=== PATIENT | male | born 1985 | race Caucasian/White ===

== ENCOUNTER 2016-05-24 13:23 | Emergency (ER) | payer OTHER ==
--- NOTE | 2016-05-25 01:45 | RAD ---
TWO VIEWS OF THE CHEST: HISTORY: Chest pain and shortness of breath. FINDINGS: Two views of the chest show normal sized cardiomediastinal silhouette. There is no evidence of conso lidation, mass, or pleural effusion. The bones are unremarkable. IMPRESSION: No evidence of acute cardiopulmonary disease.. POS: [facility]
[2016-05-25 02:20] LABS: ALT (SGPT) 81 U/L (0-55); AST (SGOT) 65 U/L (5-34); Alkaline Phosphatase 122 U/L (40-150); Anion Gap 19 mmol/L (10-20); BUN (Urea Nitrogen) 10 mg/dL (8.9-20.6); Bilirubin, Total 1.1 mg/dL (0.2-1.2); Calc. Creatinine Clearance 0 mL/min (70-130); Calcium 10.1 mg/dL (7.8-10.44); Carbon Dioxide 26 mmol/L (22-29); Chloride 97 mmol/L (98-107); Estimated GFR-MDRD Greater than 90; Globulin 3.2 g/dL (2.4-3.5); Protein, Total 8.1 g/dL (6.0-8.3)
[2016-05-25 02:21] LABS: Troponin I Less than 0.010 ng/mL (< 0.028)
[2016-05-25 02:23] LABS: Hematocrit 50.1 % (42.0-52.0); Mean Platelet Volume 8.6 fL (7.4-10.4); Red Blood Cell (RBC) Count 5.25 mill/uL (4.70-6.10); White Blood Cell (WBC) Count 15.9 thou/uL (4.8-10.8)
[2016-05-25 02:24] LABS: #Basophils 0.2 thou/uL (0.0-0.2); #Eosinphils 0.1 thou/uL (0.0-0.7); #Lymphocytes 1.2 thou/uL (1.20-3.40); #Monocytes 0.7 thou/uL (0.11-0.59); #Neutrophils 13.8 thou/uL (1.40-6.50); %Eosinophils 0.5 % (0.0-10.0); %Lymphocytes 7.7 % (21.0-51.0); %Monocytes 4.5 % (0.0-10.0)
== END 2016-05-24 15:20 | disposition home or self-care (01) ==
LOC: NAV ERS 13:23
DX: R07.89 Other chest pain (principal); F41.9 Anxiety disorder, unspecified; E03.9 Hypothyroidism, unspecified; F31.9 Bipolar disorder, unspecified; F17.210 Nicotine dependence, cigarettes, uncomplicated; Z79.899 Other long term (current) drug therapy
CPT/HCPCS: 71020; 80053; 84484; 85025; 93005

== ENCOUNTER 2016-08-22 21:29 | Emergency (ER) | payer OTHER ==
[2016-08-22 22:11] LABS: #Basophils 0.1 thou/uL (0.0-0.2); #Eosinphils 0.2 thou/uL (0.0-0.7); #Lymphocytes 2.8 thou/uL (1.20-3.40); #Monocytes 0.7 thou/uL (0.11-0.59); #Neutrophils 10.2 thou/uL (1.40-6.50); %Eosinophils 1.5 % (0.0-10.0); %Lymphocytes 19.9 % (21.0-51.0); %Neutrophils 72.6 % (42.0-75.0); Hemoglobin 17.4 g/dL (14.0-18.0); Mean Corpuscular HGB CONC 33.9 g/dL (32.0-36.0); Mean Corpuscular Hemoglobin 32.8 pg (27.0-31.0); Mean Corpuscular Volume 96.7 fl (80.0-94.0); Mean Platelet Volume 9.7 fL (7.4-10.4); Platelet Count 251 thou/uL (130-400); RBC Distribution Width 10.8 % (11.5-14.5); Red Blood Cell (RBC) Count 5.31 mill/uL (4.70-6.10); White Blood Cell (WBC) Count 14.1 thou/uL (4.8-10.8)
[2016-08-22 22:18] LABS: Amphetamine Not Detected (NotDetected); Barbiturates Screen Not Detected (NotDetected); Benzodiazepine Screen Not Detected (NotDetected); Cocaine Metabolite Screen Not Detected (NotDetected); Medtox Control Line Valid? VALID (VALID); Methadone Not Detected (NotDetected); Methamphetamine Not Detected (NotDetected); Opiate Screen Detected (NotDetected); Oxycodone Screen Not Detected (NotDetected); Phencyclidine (PCP) Not Detected (NotDetected); THC/Cannabinoid Screen Not Detected (NotDetected); Tricyclic Screen Not Detected (NotDetected)
[2016-08-22 22:20] LABS: Acetaminophen Less than 6.0 mcg/mL (10.0-30.0); Alcohol 237 mg/dL (Less than 10); Salicylate Less than 8.0 mg/dL (15.0-30.0)
[2016-08-22 22:23] LABS: ALT (SGPT) 70 U/L (8-55); AST (SGOT) 59 U/L (5-34); Alkaline Phosphatase 98 U/L (40-150); Anion Gap 21 mmol/L (10-20); BUN (Urea Nitrogen) 5 mg/dL (8.9-20.6); Bilirubin, Total 0.2 mg/dL (0.2-1.2); CK (CPK) 72 U/L (30-200); Calc. Creatinine Clearance 0 mL/min (70-130); Carbon Dioxide 19 mmol/L (22-29); Chloride 105 mmol/L (98-107); Estimated GFR-MDRD Greater than 90; Globulin 3.3 g/dL (2.4-3.5); Glucose 108 mg/dL (70-105); Potassium 3.9 mmol/L (3.5-5.1); Protein, Total 8.3 g/dL (6.0-8.3)
[2016-08-22 22:25] LABS: Sodium 141 mmol/L (136-145)
[2016-08-22] MEDS ORDERED: Sodium Chloride 0.9% 1,000 ML ONE (22:45)
[2016-08-23] MEDS ORDERED: Ibuprofen 200 MG TAB ONE (01:29)
[2016-08-23] MEDS ORDERED: Acetaminophen 500 MG TAB ONE (01:30)
== END 2016-08-23 08:40 ==
LOC: NAV ERS 21:29
DX: F31.9 Bipolar disorder, unspecified (principal); E03.9 Hypothyroidism, unspecified; F17.210 Nicotine dependence, cigarettes, uncomplicated; Z87.01 Personal history of pneumonia (recurrent); Z79.899 Other long term (current) drug therapy
CPT/HCPCS: 80053; 80178; 80306; 80307; 82550; 84443; 85025; 93005; 96360; J7050

== ENCOUNTER 2017-04-09 12:45 | Emergency (ER) | payer OTHER | END 2017-04-09 14:36 | disposition home or self-care (01) | LOC: NAV ERS 12:45 | DX: M62.838 Other muscle spasm (principal); E03.9 Hypothyroidism, unspecified; F31.9 Bipolar disorder, unspecified; F43.10 Post-traumatic stress disorder, unspecified; F17.210 Nicotine dependence, cigarettes, uncomplicated; Z79.899 Other long term (current) drug therapy | CPT/HCPCS: 99283 ==

== ENCOUNTER 2017-12-27 03:53 | Emergency (ER) | payer OTHER ==
[2017-12-27 04:33] LABS: #Basophils 0.1 thou/uL (0.0-0.2); #Eosinphils 0.1 thou/uL (0.0-0.7); #Lymphocytes 3.2 thou/uL (1.20-3.40); #Monocytes 0.6 thou/uL (0.11-0.59); %Basophils 1.2 % (0.0-1.0); %Eosinophils 1.4 % (0.0-10.0); %Lymphocytes 35.2 % (21.0-51.0); %Monocytes 6.4 % (0.0-10.0); %Neutrophils 55.8 % (42.0-75.0); Hemoglobin 15.4 g/dL (14.0-18.0); Mean Corpuscular HGB CONC 33.2 g/dL (32.0-36.0); Mean Corpuscular Hemoglobin 32.4 pg (27.0-31.0); Mean Corpuscular Volume 97.6 fL (78.0-98.0); Mean Platelet Volume 9.8 fL (7.4-10.4); Platelet Count 199 thou/uL (130-400); Red Blood Cell (RBC) Count 4.77 mill/uL (4.70-6.10)
[2017-12-27 04:40] LABS: Bilirubin Negative (Negative); Blood, Urine Trace (Negative); Clarity Clear (Clear); Glucose, Urine (Dipstick) Negative (Negative); Leukocyte Negative (Negative); Nitrite Negative (Negative); Protein, Urine (Dipstick) Negative (Neg-Trace); Urobilinogen 0.2 mg/dL (0.2-1.0)
[2017-12-27 04:45] LABS: ALT (SGPT) 39 U/L (8-55); AST (SGOT) 51 U/L (5-34); Albumin 4.2 g/dL (3.5-5.0); Alkaline Phosphatase 76 U/L (40-150); Anion Gap 14 mmol/L (10-20); BUN (Urea Nitrogen) 4 mg/dL (8.9-20.6); Bilirubin, Total 0.5 mg/dL (0.2-1.2); Calc. Creatinine Clearance 0 mL/min (70-130); Carbon Dioxide 27 mmol/L (22-29); Chloride 107 mmol/L (98-107); Estimated GFR-MDRD Greater than 90; Globulin 2.5 g/dL (2.4-3.5); Glucose 68 mg/dL (70-105); Potassium 3.8 mmol/L (3.5-5.1); Protein, Total 6.7 g/dL (6.0-8.3); Sodium 144 mmol/L (136-145)
[2017-12-27 04:46] LABS: Acetaminophen Less than 6.0 mcg/mL (10.0-30.0); Alcohol 303 mg/dL (Less than 10); Salicylate Less than 8.0 mg/dL (15.0-30.0)
[2017-12-27 04:49] LABS: Amphetamine Not Detected (NotDetected); Barbiturates Screen Not Detected (NotDetected); Benzodiazepine Screen Detected (NotDetected); Cocaine Metabolite Screen Not Detected (NotDetected); Medtox Control Line Valid? VALID (VALID); Methadone Not Detected (NotDetected); Methamphetamine Not Detected (NotDetected); Opiate Screen Not Detected (NotDetected); Oxycodone Screen Not Detected (NotDetected); Phencyclidine (PCP) Not Detected (NotDetected); THC/Cannabinoid Screen Not Detected (NotDetected); Tricyclic Screen Not Detected (NotDetected)
[2017-12-27 04:50] LABS: Bacteria/HPF None Seen HPF (None Seen); RBC/HPF 0-3 HPF (0-3); Squamous Epithelial None Seen HPF (0-3); WBC/HPF 0-3 HPF (0-3)
[2017-12-27 04:57] LABS: CKMB 0.8 ng/mL (0-6.6); Troponin I Less than 0.010 ng/mL (< 0.028)
--- NOTE | 2017-12-27 07:41 | RAD ---
AP VIEW OF THE CHEST: INDICATION: History of panic attack. COMPARISON: Prior exam dated 05/24/16. FINDINGS: Lungs are clear. Cardiomediastinal silhouette is within normal limits. No acute osseous abnormality is evident. IMPRESSION: No acute cardiopulmonary abnormality. POS: [facility]
== END 2017-12-27 23:10 ==
LOC: NAV ERS 03:53
DX: R45.851 Suicidal ideations (principal); F10.129 Alcohol abuse with intoxication, unspecified; F31.9 Bipolar disorder, unspecified; F17.210 Nicotine dependence, cigarettes, uncomplicated; E03.9 Hypothyroidism, unspecified; Z79.899 Other long term (current) drug therapy
CPT/HCPCS: 36415; 71045; 80053; 80306; 80307; 81003; 81015; 82550; 82553; 84443; 84484; 85025; 93005

== ENCOUNTER 2018-03-02 16:43 | Emergency (ER) | payer OTHER ==
[2018-03-02] MEDS ORDERED: Acetaminophen 500 MG TAB ONE (17:41)
[2018-03-02] MEDS ORDERED: Sodium Chloride 0.9% 1,000 ML ONE (17:41)
[2018-03-02] MEDS ORDERED: Ketorolac Tromethamine 30 MG/ML VIAL ONE (17:41)
--- NOTE | 2018-03-02 18:30 | RAD ---
TWO VIEWS OF THE CHEST: 03/02/18 COMPARISON: 05/24/16 HISTORY: Left sided chest pain for three days. FINDINGS: No pneumothorax, pleural fluid, lobar consolidation or alveolar edema. The heart and mediastinal cont ours are grossly unremarkable. No acute osseous abnormality. IMPRESSION: No acute findings. POS: [facility]
== END 2018-03-02 18:48 | disposition home or self-care (01) ==
LOC: NAV ERS 16:43
DX: S23.41XA Sprain of ribs, initial encounter (principal); I10 Essential (primary) hypertension; E03.9 Hypothyroidism, unspecified; F17.210 Nicotine dependence, cigarettes, uncomplicated; Z87.01 Personal history of pneumonia (recurrent); Z79.899 Other long term (current) drug therapy; Y04.0XXA Assault by unarmed brawl or fight, initial encounter
CPT/HCPCS: 71046; 93005; 96361; 96374; J1885; J7050

== ENCOUNTER 2018-08-27 15:57 | Emergency (ER) | payer OTHER ==
[2018-08-27 16:54] LABS: #Basophils 0.1 thou/uL (0.0-0.2); #Eosinphils 0.1 thou/uL (0.0-0.7); #Lymphocytes 2.9 thou/uL (1.20-3.40); #Monocytes 0.4 thou/uL (0.11-0.59); #Neutrophils 7.4 thou/uL (1.40-6.50); %Basophils 0.9 % (0.0-1.0); %Eosinophils 0.7 % (0.0-10.0); %Lymphocytes 26.8 % (21.0-51.0); %Monocytes 3.6 % (0.0-10.0); Hemoglobin 16.8 g/dL (14.0-18.0); Mean Corpuscular HGB CONC 31.9 g/dL (32.0-36.0); Mean Corpuscular Hemoglobin 29.9 pg (27.0-31.0); Mean Corpuscular Volume 93.8 fL (78.0-98.0); Mean Platelet Volume 8.6 fL (7.4-10.4); Platelet Count 218 thou/uL (130-400); RBC Distribution Width 12.5 % (11.5-14.5); Red Blood Cell (RBC) Count 5.63 mill/uL (4.70-6.10); White Blood Cell (WBC) Count 10.8 thou/uL (4.8-10.8)
[2018-08-27 16:56] LABS: Amphetamine Not Detected (NotDetected); Barbiturates Screen Not Detected (NotDetected); Benzodiazepine Screen Not Detected (NotDetected); Bilirubin Negative (Negative); Blood, Urine Small (Negative); Clarity Clear (Clear); Cocaine Metabolite Screen Not Detected (NotDetected); Glucose, Urine (Dipstick) Negative (Negative); Leukocyte Negative (Negative); Medtox Control Line Valid? VALID (VALID); Methadone Not Detected (NotDetected); Methamphetamine Not Detected (NotDetected); Nitrite Negative (Negative); Opiate Screen Not Detected (NotDetected); Oxycodone Screen Not Detected (NotDetected); Phencyclidine (PCP) Not Detected (NotDetected); Protein, Urine (Dipstick) 100 mg/dL (Neg-Trace); THC/Cannabinoid Screen Not Detected (NotDetected); Tricyclic Screen Not Detected (NotDetected); Urobilinogen 0.2 mg/dL (0.2-1.0); pH, Urine 6.5 (5.0-9.0)
[2018-08-27] MEDS ORDERED: Thiamine HCl 200 MG/2 ML VIAL ONE (16:59)
[2018-08-27] MEDS ORDERED: Multivit, Adult Inj 10 ML VIAL ONE (16:59)
[2018-08-27] MEDS ORDERED: Dextrose 5 %-0.45 % NaCl 1,000 ML ONE (16:59)
[2018-08-27 17:03] LABS: RBC/HPF 0-3 HPF (0-3); Specific Gravity, Urine 1.008 (1.002-1.036); Squamous Epithelial 0-3 HPF (0-3)
[2018-08-27 17:09] LABS: ALT (SGPT) 47 U/L (8-55); AST (SGOT) 64 U/L (5-34); Acetaminophen Less than 6.0 mcg/mL (10.0-30.0); Albumin 4.6 g/dL (3.5-5.0); Alcohol 328 mg/dL (Less than 10); Alcohol 336 mg/dL (Less than 10); Alkaline Phosphatase 94 U/L (40-150); Anion Gap 19 mmol/L (10-20); BUN (Urea Nitrogen) 6 mg/dL (8.9-20.6); Bilirubin, Total 0.3 mg/dL (0.2-1.2); Calc. Creatinine Clearance 0 mL/min (70-130); Calcium 9.4 mg/dL (7.8-10.44); Carbon Dioxide 24 mmol/L (22-29); Chloride 104 mmol/L (98-107); Estimated GFR-MDRD Greater than 90; Globulin 2.8 g/dL (2.4-3.5); Glucose 97 mg/dL (70-105); Potassium 3.7 mmol/L (3.5-5.1); Protein, Total 7.4 g/dL (6.0-8.3); Salicylate Less than 8.0 mg/dL (15.0-30.0); Sodium 143 mmol/L (136-145)
[2018-08-27] MEDS ORDERED: Nicotine 21 MG PATCH TOP SCH (17:15)
[2018-08-27] MEDS ORDERED: Lorazepam 2 MG/ML VIAL ONE (19:35)
[2018-08-28] MEDS ORDERED: FLUoxetine HCl 10 MG CAP ONE (09:47)
[2018-08-28] MEDS ORDERED: Lithium Carbonate 150 MG CAP PO SCH (10:00)
[2018-08-28] MEDS ORDERED: Propranolol HCl 20 MG TAB PO SCH ×2 (10:00→10:30)
[2018-08-28] MEDS ORDERED: Levothyroxine Sodium 112 MCG TAB PO SCH (10:15)
[2018-08-28] MEDS ORDERED: hydrOXYzine 25 MG TAB PO SCH (10:15)
== END 2018-08-28 11:30 ==
LOC: NAV ERS 15:57
DX: F10.10 Alcohol abuse, uncomplicated (principal); E03.9 Hypothyroidism, unspecified; I10 Essential (primary) hypertension; F41.9 Anxiety disorder, unspecified; F31.9 Bipolar disorder, unspecified; F43.10 Post-traumatic stress disorder, unspecified; F17.210 Nicotine dependence, cigarettes, uncomplicated; Z79.899 Other long term (current) drug therapy
CPT/HCPCS: 36415; 80053; 80306; 80307; 81003; 81015; 84443; 85025; 96361; 96372; 96374; 96375; J2060; J3411; J7042